=== PATIENT | female | born 1990 ===

== ENCOUNTER 2016-10-08 12:46 | Emergency (ER) | payer OTHER ==
[2016-10-08 13:07] VITALS: RESP 20
[2016-10-08 15:47] VITALS: BP 111/72; PULSE 79; TEMP 98.2; O2SAT 98
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
== END 2016-10-08 16:12 | disposition home or self-care (01) ==
LOC: C.ER 12:46
DX: S13.4XXA Sprain of ligaments of cervical spine, initial encounter (principal); V89.2XXA Person injured in unspecified motor-vehicle accident, traffic, initial encounter